=== PATIENT | female | born 1975 | race Caucasian/White ===

== ENCOUNTER 2017-12-28 03:35 | Observation (INO) | payer OTHER ==
[2017-12-28] MEDS ORDERED: Ondansetron 8 MG Tab.DIS PO ONE (03:45)
[2017-12-28] MEDS ORDERED: Pantoprazole 40 MG Vial IVPUSH ONE (03:57)
[2017-12-28] MEDS ORDERED: Sodium Chloride 0.9% 1,000 ML IV ONE (03:58)
[2017-12-28] MEDS ORDERED: HYDROmorphone 2 MG/ML SDV IVPUSH ONE ×2 (04:06→04:55)
[2017-12-28] MEDS ORDERED: Metoclopramide 10 MG/2 ML SDV IVPUSH ONE (04:55)
[2017-12-28] MEDS ORDERED: Sodium Chloride 0.9% 1,000 ML IV SCH (05:00)
[2017-12-28] MEDS ORDERED: Iopamidol 755 Mg/ML 100 ML Bottle IV ONE (06:04)
[2017-12-28] MEDS ORDERED: Diatrizoate Meglumine/Diatrizoate Sodium 37% 30 ML Bottle PO ONE (06:05)
--- NOTE | 2017-12-28 07:05 | EDM.PDOC ---
ED HPI GENERAL MEDICAL PROBLEM - General Chief Complaint: Abdominal Pain Stated Complaint: SIDE PAIN Time Seen by Provider: 12/28/17 03:35 Source of Information: Reports: Patient History Limitations: Reports: No Limitations - History of Present Illness INITIAL COMMENTS - FREE TEXT/NARRATIVE: 42 y.o.w.f came with her PC due to acute right upper and mid upper abd. pain and severe nausea, did not vomit. No diarrhea. No trauma, S/P Hysterectomy. No other acute medical issues. BP 123/80 Pulse 84 RR 18 Pulse ox 98% Temp 36.8 Onset Date: 12/28/17 Onset Time: 01:00 Duration: Hour(s):, Getting Worse Location: Reports: Abdomen Quality: Reports: Ache, Burning, Dull, Stabbing, Throbbing Severity: Moderate Improves with: Reports: None Worsens with: Reports: Movement Associated Symptoms: Reports: No Other Symptoms right upper abdomen Pain Score (Numeric/FACES): 2 - Related Data Allergies Allergy/AdvReac Type Severity Reaction Status Date / Time sulfamethoxazole Allergy Rash Verified 08/07/16 17:11 [From Bactrim] trimethoprim [From Bactrim] Allergy Rash Verified 08/07/16 17:11 Home Meds: Home Meds Amitriptyline [Elavil] 25 mg PO BEDTIME 08/07/16 [History] Estradiol 2 mg PO BEDTIME 08/07/16 [History] Naproxen Sodium [Aleve] 440 mg PO Q12H PRN 08/07/16 [History] Dicyclomine [Bentyl] 10 mg PO QIDACANDBED #40 cap 12/28/17 [Rx] PARoxetine [Paxil] 30 mg PO BEDTIME 12/28/17 [History] Past Medical History HEENT History: Reports: Impaired 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: Psychiatric History: Reports: Anxiety - Past Surgical History Female Surgical History: Reports: Section, Hysterectomy, Other (See Below) Social & Family History - Family History Family Medical History: Noncontributory - Tobacco Use Smoking Status *Q: Never Smoker Second Hand Smoke Exposure: No - Caffeine Use Caffeine Use: Reports: Soda - Recreational Drug Use Recreational Drug Use: No ED ROS GENERAL - Review of Systems Review Of Systems: See Below Constitutional: Reports: No Symptoms HEENT: Reports: No Symptoms Respiratory: Reports: No Symptoms Cardiovascular: Reports: No Symptoms Endocrine: Reports: No Symptoms GI/Abdominal: Reports: Abdominal Pain : Reports: No Symptoms Musculoskeletal: Reports: No Symptoms Skin: Reports: No Symptoms Neurological: Reports: No Symptoms Psychiatric: Reports: No Symptoms Hematologic/Lymphatic: Reports: No Symptoms Immunologic: Reports: No Symptoms ED EXAM, GI/ABD - Physical Exam Exam: See Below Exam Limited By: No Limitations General Appearance: Alert, WD/WN, Moderate Distress Eyes: Bilateral: Normal Appearance Ears: Normal External Exam, Normal Canal Nose: Normal Inspection, Normal Mucosa Throat/Mouth: Normal Inspection Head: Atraumatic, Normocephalic Neck: Normal Inspection, Supple, Non-Tender, Full Range of Motion Respiratory/Chest: No Respiratory Distress, Lungs Clear, Normal Breath Sounds Cardiovascular: Normal Peripheral Pulses, Regular Rate, Rhythm, No Edema, No Gallop GI/Abdominal Exam: Normal Bowel Sounds, Tender (RUQ and epigastric ) (Female) Exam: Deferred Rectal (Female) Exam: Deferred Back Exam: Normal Inspection, Full Range of Motion Extremities: Normal Inspection, Normal Range of Motion, Non-Tender, No Pedal Edema Neurological: Alert, Oriented, CN II-XII Intact, Normal Cognition, Normal Gait, Normal Reflexes, No Motor/Sensory Deficits Psychiatric: Normal Affect, Normal Mood Skin Exam: Warm, Dry, Intact, Normal Color Lymphatic: No Adenopathy Course - Vital Signs Text/Narrative:: 42 y.o.w.f came with her PC due to acute right upper and mid upper abd. pain and severe nausea, did not vomit. No diarrhea. No trauma, S/P Hysterectomy. No other acute medical issues. BP 123/80 Pulse 84 RR 18 Pulse ox 98% Temp 36.8 PE: WNWD W F with abd. pain Imaging: CT abd/pelvis: Pos Cholecystitis with GB wall thickening. US Abd. limited: Call bladder wall thickening with poss edema. Poss polyp on CBD Labs: CBC NL BMP and LFT nl Glc was 233, however Impression: Acute Abd. pain, Dehydration DDX cholecystitis. DDx Gastritis DDx Fatty liver Tx: Zofran, Dilaudid, NS, Protonix, Zosyn. Reexam: Improved 8.11 am Consultation: Dr. Moore: Will see the patient in the ED. Plan: Dr. Moore admitted the Pt to the [facility] Last Recorded V/S: Last Vital Signs Temp 36.8 C 12/28/17 16:00 Pulse 83 12/28/17 16:00 Resp 18 12/28/17 16:00 BP 123/79 12/28/17 16:00 Pulse Ox 96 12/28/17 16:00 - Orders/Labs/Meds Labs: Laboratory Tests 12/28/17 12/28/17 12/28/17 Range/Units 03:48 03:48 04:10 WBC (4.5-12.0) X10-3/uL RBC (3.23-5.20) x10(6)uL Hgb (11.5-15.5) g/dL Hct (30.0-51.3) % MCV (80-96) fL MCH (27.7-33.6) pg MCHC (32.2-35.4) g/dL RDW (11.5-15.5) % Plt Count (125-369) X10(3)uL MPV (7.4-10.4) fL Neut % (Auto) (46-82) % Lymph % (Auto) (13-37) % [place] % (Auto) (4-12) % Eos % (Auto) (1.0-5.0) % Baso % (Auto) (0-2) % Neut # (Auto) (1.6-8.3) # Lymph # (Auto) (0.6-5.0) # [place] # (Auto) (0.0-1.3) # Eos # (Auto) (0.0-0.8) # Baso # (Auto) (0.0-0.2) # Sodium (135-145) mmol/L Potassium (3.5-5.3) mmol/L Chloride (100-110) mmol/L Carbon Dioxide (21-32) mmol/L BUN (7-18) mg/dL Creatinine (0.55-1.02) mg/dL Est Cr Clr Drug Dosing mL/min Estimated GFR (MDRD) (>60) BUN/Creatinine Ratio (9-20) Glucose (80-116) mg/dL Calcium (8.6-10.2) mg/dL Total Bilirubin 0.1 (0.1-1.3) mg/dL Direct Bilirubin < 0.05 L (0.10-0.20) mg/dL AST 22 (5-25) IU/L ALT 39 H (12-36) U/L Alkaline Phosphatase 60 (56-112) IU/L Total Protein 6.7 (6.0-8.0) g/dL Albumin 3.2 L (3.5-5.2) g/dL Amylase 34 (25-115) U/L Urine Color Yellow (YELLOW) Urine Appearance Slightly cloudy (CLEAR) Urine pH 6.0 (5.0-6.5) Ur Specific [place] 1.030 H (1.010-1.025) Urine Protein Negative (NEGATIVE) mg/dL Urine Glucose (UA) Normal (NEGATIVE) mg/dL Urine Ketones Negative (NEGATIVE) mg/dL Urine Occult Blood Negative (NEGATIVE) Urine Nitrite Negative (NEGATIVE) Urine Bilirubin Negative (NEGATIVE) Urine Urobilinogen Normal (NEGATIVE) mg/dL Ur Leukocyte Esterase Negative (NEGATIVE) Urine RBC 0-5 (0) Urine WBC 0-5 (0) Ur Squamous Epith Cells Few H (NS,R,O) Urine Bacteria Few H (NS) Urine HCG, Qual Negative (NEGATIVE) 12/28/17 12/28/17 Range/Units 04:10 04:10 WBC 6.7 (4.5-12.0) X10-3/uL RBC 4.50 (3.23-5.20) x10(6)uL Hgb 13.4 (11.5-15.5) g/dL Hct 39.0 (30.0-51.3) % MCV 86.8 (80-96) fL MCH 29.8 (27.7-33.6) pg MCHC 34.4 (32.2-35.4) g/dL RDW 11.5 (11.5-15.5) % Plt Count 228 (125-369) X10(3)uL MPV 9.2 (7.4-10.4) fL Neut % (Auto) 60.9 (46-82) % Lymph % (Auto) 29.7 (13-37) % [place] % (Auto) 6.4 (4-12) % Eos % (Auto) 3 (1.0-5.0) % Baso % (Auto) 1 (0-2) % Neut # (Auto) 4.1 (1.6-8.3) # Lymph # (Auto) 2.0 (0.6-5.0) # [place] # (Auto) 0.4 (0.0-1.3) # Eos # (Auto) 0.2 (0.0-0.8) # Baso # (Auto) 0.0 (0.0-0.2) # Sodium 140 (135-145) mmol/L Potassium 4.9 (3.5-5.3) mmol/L Chloride 105 (100-110) mmol/L Carbon Dioxide 27 (21-32) mmol/L BUN 15 (7-18) mg/dL Creatinine 0.9 (0.55-1.02) mg/dL Est Cr Clr Drug Dosing 79.19 mL/min Estimated GFR (MDRD) > 60 (>60) BUN/Creatinine Ratio 16.7 (9-20) Glucose 123 H (80-116) mg/dL Calcium 10.1 (8.6-10.2) mg/dL Total Bilirubin (0.1-1.3) mg/dL Direct Bilirubin (0.10-0.20) mg/dL AST (5-25) IU/L ALT (12-36) U/L Alkaline Phosphatase (56-112) IU/L Total Protein (6.0-8.0) g/dL Albumin (3.5-5.2) g/dL Amylase (25-115) U/L Urine Color (YELLOW) Urine Appearance (CLEAR) Urine pH (5.0-6.5) Ur Specific [place] (1.010-1.025) Urine Protein (NEGATIVE) mg/dL Urine Glucose (UA) (NEGATIVE) mg/dL Urine Ketones (NEGATIVE) mg/dL Urine Occult Blood (NEGATIVE) Urine Nitrite (NEGATIVE) Urine Bilirubin (NEGATIVE) Urine Urobilinogen (NEGATIVE) mg/dL Ur Leukocyte Esterase (NEGATIVE) Urine RBC (0) Urine WBC (0) Ur Squamous Epith Cells (NS,R,O) Urine Bacteria (NS) Urine HCG, Qual (NEGATIVE) Meds: Medications Discontinued Medications Generic Name Dose Route Start Last Admin Trade Name Freq PRN Reason Stop Dose Admin Amitriptyline HCl 25 mg 12/28/17 21:00 Elavil PO BEDTIME KIRILL Diatrizoate Meglum/Diatrizoate Sod 30 ml 12/28/17 06:05 12/28/17 07:00 Gastrografin 37% PO 12/28/17 06:06 30 ml . DIRECTED ONE Administration Dicyclomine HCl 10 mg 12/28/17 09:02 12/28/17 13:25 Bentyl PO 10 mg QIDACANDBED PRN Administration Cramping Estradiol 2 mg 12/28/17 21:00 Estradiol PO BEDTIME KIRILL Hydromorphone HCl 0.5 mg 12/28/17 04:06 12/28/17 04:09 Dilaudid IVPUSH 12/28/17 04:07 0.5 mg ONETIME ONE Administration Hydromorphone HCl 1 mg 12/28/17 04:55 12/28/17 05:00 Dilaudid IVPUSH 12/28/17 04:56 1 mg ONETIME ONE Administration Sodium Chloride 1,000 mls @ 999 mls/hr 12/28/17 03:58 12/28/17 04:04 Normal Saline IV 12/28/17 04:58 999 mls/hr .BOLUS ONE Administration Piperacillin Sod/Tazobactam 50 mls @ 100 mls/hr 12/28/17 07:56 12/28/17 09:02 Sod 3.375 gm/ Sodium Chloride IV 12/28/17 08:25 Not Given ONETIME STA Lactated Ringer's 1,000 mls @ 125 mls/hr 12/28/17 09:00 12/28/17 13:12 Ringers, Lactated IV 125 mls/hr ASDIRECTED KIRILL Administration Sodium Chloride 1,000 mls @ 125 mls/hr 12/28/17 05:00 12/28/17 05:00 Normal Saline IV 125 mls/hr ASDIRECTED KIRILL Administration Iopamidol 100 ml 12/28/17 06:04 12/28/17 06:58 Isovue-370 (76%) IV 12/28/17 06:05 94 ml ONETIME ONE Administration Ketorolac Tromethamine 30 mg 12/28/17 08:59 12/28/17 10:19 Toradol IVPUSH 30 mg Q6H PRN Administration Pain (moderate 4-6) Metoclopramide HCl 10 mg 12/28/17 04:55 12/28/17 05:00 Reglan IVPUSH 12/28/17 04:56 10 mg ONETIME ONE Administration Non-Formulary Medication 20 mg 12/28/17 09:15 12/28/17 14:58 Paroxetine Hcl [Paroxetine Hcl] PO Not Given DAILY KIRILL Ondansetron HCl 8 mg 12/28/17 03:45 12/28/17 03:48 Zofran Odt PO 12/28/17 03:46 8 mg ONETIME ONE Administration Ondansetron HCl 8 mg 12/28/17 08:59 12/28/17 09:18 Zofran IV 8 mg Q4H PRN Administration Nausea/Vomiting Pantoprazole Sodium 40 mg 12/28/17 03:57 12/28/17 04:04 Protonix Iv IVPUSH 12/28/17 03:58 40 mg ONETIME ONE Administration Paroxetine HCl 30 mg 12/28/17 21:00 Paxil PO BEDTIME KIRILL Departure - Departure Time of Disposition: 11:00 Disposition: Refer to Observation Condition: Fair Clinical Impression: Gastroenteritis - Discharge Information
[2017-12-28] MEDS ORDERED: Piperacillin/Tazobactam 3.375 GM in Sodium Chloride 0.9% 50 ML IV STA (07:56)
[2017-12-28] MEDS ORDERED: Ondansetron 4 MG/2 ML SDV IV PRN (08:59)
[2017-12-28] MEDS ORDERED: Ketorolac 30 MG/ML SDV IVPUSH PRN (08:59)
[2017-12-28] MEDS ORDERED: Lactated Ringers 1,000 ML IV SCH (09:00)
[2017-12-28] MEDS ORDERED: Dicyclomine 10 MG Cap PO PRN (09:02)
[2017-12-28] MEDS ORDERED: PAROXETINE HCL 20 MG PO SCH (09:15)
--- NOTE | 2017-12-28 09:33 | US ---
INDICATION: Right upper quadrant abdominal pain. Positive Cid sign. RIGHT UPPER QUADRANT/GALLBLADDER ULTRASOUND: Multiple ultrasonic images were obtained 12/28/2017 and compared with 02/02/2016. The gallbladder remains within normal limits in size. However, it has an abnormal appearance with thickened wall and pericholecystic fluid. There appears to be a calcific rimmed impacted density in the neck of the gallbladder , compatible with a gallstone. This appearance was not present on the previous study of 2015, which showed no thickening of the wall and no impacted echogenic focus at the neck of the gallbladder, or pericholecystic fluid at that time. The area is generally tender. However, the patient has been given pain medications. Cid sign is felt to be inconsistent, therefore. The liver is heterogeneous and echogenic, compatible with diffuse fatty infiltration with a few areas of fatty sparing noted. The common bile duct was slightly prominent in size, at 5.2 mm compared with 3.9 mm on the previous examination. This may be within normal limits, however. The right kidney was unremarkable. No other organomegaly or mass lesions were identified. No other areas of free fluid collection were seen. The aorta and IVC were not evaluated. The pancreas was partly visualized, appearing normal where seen. The tail was not ideally seen. IMPRESSION: Findings are compatible with cholelithiasis and acute cholecystitis. Report was called to Dr. Moore at 0900 hours, 12/28/2017. Incidental note is made of a mass posterior to the cecum, which measures approximately 38 to 40 mm and was present on a previous CT study of 2015, and is essentially unchanged from that previous examination. It may represent an endometrioma. It did not appear to be present on pre-hysterectomy CT of 2011. However,current CT appearance is stable compared with the previous CT scan of 02/05/2016. [facility]
--- NOTE | 2017-12-28 09:51 | PCM.HP ---
H&P History of Present Illness - General Date of Service: 12/28/17 Source of Information: Patient - History of Present Illness Initial Comments - Free Text/Narative: 42 yo wf who presented to the ED today with a complaint of abd pain and diarrhea. The pain was diffuse in nature, now located on the right side. Her issue started several days ago with diarrhea. she has been having frequent loose stools and yesterday pain along with nausea and vomiting started. The pain is crampy in nature. No real aggravating factors are noted. She also had some nausea as well. Has noted some chills over the past few weeks. No fever. Lab work was essentially normal nely with her CBC an LFT's. CT scan demonstrates what appears to be acute cholecystitis. US demonstrated thickening of the gallbladder wall with a small stone in the neck of the gallbladder. She has a hx of IBS. Denies any hx of fatty food intolerance, jaundice or acholic stools. right upper abdomen Pain Score (Numeric/FACES): 2 - Related Data Allergies/Adverse Reactions: Allergies Allergy/AdvReac Type Severity Reaction Status Date / Time sulfamethoxazole Allergy Rash Verified 08/07/16 17:11 [From Bactrim] trimethoprim [From Bactrim] Allergy Rash Verified 08/07/16 17:11 Home Medications: Home Meds Amitriptyline [Elavil] 25 mg PO BEDTIME 08/07/16 [History] Estradiol [Estradiol] 2 mg PO BEDTIME 08/07/16 [History] Naproxen Sodium [Aleve] 440 mg PO Q12H PRN 08/07/16 [History] PARoxetine [Paxil] 30 mg PO BEDTIME 12/28/17 [History] Past Medical History HEENT History: Reports: Impaired Vision Gastrointestinal History: Reports: Irritable Bowel Syndrome 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: Endometriosis, Psychiatric History: Reports: Anxiety - Past Surgical History Female Surgical History: Reports: Section, Hysterectomy, Other (See Below) Social & Family History - Family History Family Medical History: Noncontributory - Tobacco Use Smoking Status *Q: Never Smoker Second Hand Smoke Exposure: No - Caffeine Use Caffeine Use: Reports: Soda - Recreational Drug Use Recreational Drug Use: No H&P Review of Systems - Review of Systems: Review Of Systems: See Below General: Denies: Fever, Weight Loss HEENT: Reports: No Symptoms Pulmonary: Reports: No Symptoms Cardiovascular: Reports: No Symptoms Gastrointestinal: Reports: Abdominal Pain, Diarrhea, Nausea Genitourinary: Reports: No Symptoms Musculoskeletal: Reports: No Symptoms Skin: Reports: No Symptoms Neurological: Reports: No Symptoms Exam - Exam Exam: See Below - Vital Signs Vital Signs: Last Vital Signs Temp 36.7 C 12/28/17 09:15 Pulse 84 12/28/17 06:30 Resp 18 12/28/17 09:15 BP 125/80 12/28/17 09:15 Pulse Ox 100 12/28/17 09:15 Weight: 90.718 kg - Exam General: Alert, Oriented, Cooperative. No: Mild Distress HEENT: PERRLA, Conjunctiva Clear, EOMI, Mucosa Moist & [place], Posterior Pharynx Clear, Pupils Equal, Pupils Reactive, TMs Clear Lungs: Clear to Auscultation, Normal Respiratory Effort Cardiovascular: Regular Rate, Regular Rhythm GI/Abdominal Exam: Soft, Non-Tender, Abnormal Bowel Sounds (hyperactive ) Rectal (Female) Exam: Deferred Back Exam: Normal Inspection - Patient Data Result Diagrams: 12/28/17 04:10 12/28/17 04:10 *Q Meaningful Use (ADM) - VTE *Q VTE Criteria *Q: - Stroke *Q Stroke Criteria *Q: - AMI *Q AMI Criteria *Q: - Problem List (1) AGE (acute gastroenteritis) SNOMED Code(s): 94242693 ICD Code: K52.9 - NONINFECTIVE GASTROENTERITIS AND COLITIS, UNSPECIFIED Status: Acute Current Visit: Yes (2) Gallstone SNOMED Code(s): 488637269 ICD Code: K80.20 - CALCULUS OF GALLBLADDER W/O CHOLECYSTITIS W/O OBSTRUCTION Status: Acute Current Visit: Yes Qualifiers: Cholecystitis presence: without cholecystitis Biliary obstruction: without biliary obstruction Qualified Code(s): K80.20 - Calculus of gallbladder without cholecystitis without obstruction Problem List Initiated/Reviewed/Updated: Yes Orders Last 24hrs: Active Orders 24 hr Category Date Time Status Sodium Chloride 0.9% [Normal Saline] 1,000 ml Med 12/28/17 05:00 Active IV ASDIRECTED Medication Orders Dicyclomine HCl (Bentyl) 10 mg PO QIDACANDBED PRN PRN Reason: Cramping Lactated Ringer's (Ringers, Lactated) 1,000 mls @ 125 mls/hr IV ASDIRECTED KIRILL Sodium Chloride (Normal Saline) 1,000 mls @ 125 mls/hr IV ASDIRECTED KIRILL Last Admin: 12/28/17 05:00 Dose: 125 mls/hr Ketorolac Tromethamine (Toradol) 30 mg IVPUSH Q6H PRN PRN Reason: Pain (moderate 4-6) Non-Formulary Medication (Amitriptyline [Elavil]) 25 mg PO BEDTIME KIRILL Non-Formulary Medication (Estradiol [Estradiol]) 2 mg PO DAILY KIRILL Non-Formulary Medication (Paroxetine Hcl [Paroxetine Hcl]) 20 mg PO DAILY KIRILL Ondansetron HCl (Zofran) 8 mg IV Q4H PRN PRN Reason: Nausea/Vomiting Last Admin: 12/28/17 09:18 Dose: 8 mg Assessment/Plan Comment:: while her imaging studies suggest cholecystitis, clinically she does not appear to have this at this time Rather AGE appears to be favored diagnosis. I am going to admit the pt for iv fluids and repeat lab.
[2017-12-28 17:31] VITALS: BP 123/79
--- NOTE | 2017-12-28 18:21 | PCM.SN ---
- Free Text/Narrative Note: abd pain is better with the bentyl. she has tolerated a regular diet. CBC has stayed in the normal range. abd bowel sounds are better. no rebound or guarding. would like to go home will discharge.
[2017-12-28] MEDS ORDERED: Estradiol 1 MG Tab PO SCH (21:00)
[2017-12-28] MEDS ORDERED: Amitriptyline 25 MG Tab PO SCH (21:00)
== END 2017-12-28 19:10 | disposition home or self-care (01) ==
LOC: FB.ED 03:35 → FB.MS 09:03
PROVIDERS: ADMIT Surgery; ATTEND Surgery
DX: K52.9 Noninfective gastroenteritis and colitis, unspecified (principal); K80.20 Calculus of gallbladder without cholecystitis without obstruction; F41.9 Anxiety disorder, unspecified; Z88.2 Allergy status to sulfonamides; Z88.1 Allergy status to other antibiotic agents
CPT/HCPCS: 36415; 74177; 76705; 80048; 80076; 81001; 81025; 82150; 85025; A9270; C9113; J1170; J1885; J2405; J2765; J7040; J7120; Q9967

== ENCOUNTER 2017-12-30 07:25 | Day surgery (SDC) | payer OTHER ==
[2017-12-30] MEDS ORDERED: Lactated Ringers 1,000 ML IV SCH ×2 (08:00→10:30)
[2017-12-30] MEDS ORDERED: Ondansetron 4 MG/2 ML SDV IVPUSH ONE (09:00)
[2017-12-30] MEDS ORDERED: Dexamethasone 4 MG/ML 5 ML MDV IVPUSH ONE (09:00)
[2017-12-30] MEDS ORDERED: Midazolam 1 MG/ML 2 ML SDV IV ONE (09:00)
[2017-12-30] MEDS ORDERED: Ketorolac 30 MG/ML SDV IVPUSH ONE (09:00)
[2017-12-30] MEDS ORDERED: Neostigmine Methylsulfate 1 MG/ML 5 ML Syringe IV ONE (09:00)
[2017-12-30] MEDS ORDERED: HYDROmorphone 2 MG/ML SDV IV ONE (09:00)
[2017-12-30] MEDS ORDERED: Propofol 200 MG/20 ML SDV IV ONE (09:00)
[2017-12-30] MEDS ORDERED: fentaNYL 100 MCG/2 ML SDV IV ONE (09:00)
[2017-12-30] MEDS ORDERED: Rocuronium 100 MG/10 ML MDV IV ONE (09:00)
[2017-12-30] MEDS ORDERED: Lactated Ringers 1,000 ML IV ONE (09:00)
--- NOTE | 2017-12-30 09:05 | PCM.HPR ---
H & P Addendum review - H & P Addendum Review Date of Original H & P: 12/29/17 Date Reviewed: 12/30/17 Time Reviewed: 08:50 Patient was Examined: No Changes
--- NOTE | 2017-12-30 10:03 | PCM.OPNOTE ---
- General Post-Op/Procedure Note Date of Surgery/Procedure: 12/30/17 Operative Procedure(s): Lap [facility] Findings: Acute Cholecystitis/Cholelitiasis Pre Op Diagnosis: [place] Post-Op Diagnosis: Same Anesthesia Technique: General ET Tube Primary Surgeon: Jun Arenas Pathology: Gallbladder EBL in mLs: 10 Condition: Good
[2017-12-30] MEDS ORDERED: Promethazine 25 MG/ML SDV IM PRN (10:20)
[2017-12-30] MEDS ORDERED: fentaNYL 100 MCG/2 ML SDV IVPUSH PRN (10:20)
[2017-12-30] MEDS ORDERED: Naloxone 0.4 MG/ML SDV IVPUSH PRN (10:20)
[2017-12-30] MEDS ORDERED: Acetaminophen/HYDROcodone 325-5 MG Tab PO PRN (10:35)
[2017-12-30] MEDS ORDERED: hydrOXYzine HCl 50 MG/ML SDV IM ONE (10:38)
[2017-12-30] MEDS ORDERED: hydrOXYzine HCl 50 MG/ML SDV ONE (10:39)
[2017-12-30] MEDS ORDERED: Acetaminophen/HYDROcodone 325-5 MG Tab PO ONE (13:18)
--- NOTE | 2017-12-30 14:45 | OR ---
DATE OF OPERATION: 12/30/2017 SURGEON: Jun Arenas MD PREOPERATIVE DIAGNOSES: Acute cholecystitis and cholelithiasis. POSTOPERATIVE DIAGNOSES: Acute cholecystitis and cholelithiasis. PROCEDURE: Laparoscopic cholecystectomy. RPG PROGRAMMER: None. ANESTHESIA: General. PROCEDURE: The patient was brought to the operating room, where general endotracheal anesthesia was administered. The abdomen was prepped with ChloraPrep and draped sterilely. An infraumbilical incision was made and extended into the peritoneal cavity without difficulty. The Fer cannulator was introduced and a pneumoperitoneum obtained. The remaining three 5-mm ports were placed in the usual positions. General exploration revealed the surface of the liver, stomach, omentum, bowel, and peritoneal surfaces to be normal. There were some omental adhesions to the lower midline that were not interfering with visualization. The gallbladder was edematous consistent with acute cholecystitis. The gallbladder was grasped and retracted cephalad. The cystic artery and cystic duct were clearly dissected free. Minimal oozing occurred during the dissection. The cystic artery was doubly clipped proximally and once distally and then transected. The anatomy of the cystic duct was reconfirmed and could be seen entering the gallbladder and extending towards the common bile duct. This was doubly clipped proximally and once distally and then transected. The gallbladder was then removed from the bed of the liver without difficulty. No bile leakage occurred. The gallbladder was brought out through the umbilical incision. The right upper quadrant was irrigated and inspected, return was clear, and hemostasis was assured. Ports were removed under direct vision and remained hemostatic. The umbilical fascia was closed with [id number] #0 Vicryl. The skin was closed with #4-0 Vicryl subcuticular sutures. Benzoin and Steri-Strips were placed and Band-Aids applied. The patient tolerated the procedure well. Estimated blood loss is 10 mL. Patient returned to postanesthesia in stable condition. /[id number] [place]
[2017-12-30 15:17] VITALS: BP 137/81
== END 2017-12-30 14:35 | disposition home or self-care (01) ==
LOC: FB.SDS 07:25 → FB.MS 07:26 → FB.SDS 14:35
PROVIDERS: ATTEND Surgery
DX: K80.10 Calculus of gallbladder with chronic cholecystitis without obstruction (principal); Z90.89 Acquired absence of other organs; Z90.722 Acquired absence of ovaries, bilateral; Z90.710 Acquired absence of both cervix and uterus; Z98.890 Other specified postprocedural states; Z88.2 Allergy status to sulfonamides
CPT/HCPCS: 88304; A9270-GY; J1100; J1170; J1885; J2250; J2405; J2704; J3010; J3410; J7120

== ENCOUNTER 2021-06-15 20:40 | Emergency (ER) | payer OTHER ==
[2021-06-15 21:11] VITALS: BP 152/84; PULSE 67
[2021-06-15] MEDS ORDERED: Ondansetron 4 MG/2 ML SDV IVPUSH ONE (21:54)
[2021-06-15] MEDS ORDERED: Sodium Chloride 0.9% 10 ML Syringe FLUSH PRN (21:54)
[2021-06-15] MEDS ORDERED: Ketorolac 30 MG/ML SDV IVPUSH STA (21:55)
[2021-06-15] MEDS ORDERED: Morphine 2 MG/ML SYRINGE IVPUSH STA (21:55)
[2021-06-15] MEDS ORDERED: Sodium Chloride 0.9% 1,000 ML IV SCH (22:00)
[2021-06-15] MEDS ORDERED: Iopamidol 755 Mg/ML 100 ML Bottle IV ONE (22:13)
--- NOTE | 2021-06-15 22:16 | EDM.PDOC ---
ED HPI GENERAL MEDICAL PROBLEM - General Chief Complaint: Abdominal Pain Stated Complaint: STOMACH PAIN RIGHT SIDE Time Seen by Provider: 06/15/21 21:05 Source of Information: Reports: Patient History Limitations: Reports: No Limitations - History of Present Illness INITIAL COMMENTS - FREE TEXT/NARRATIVE: Patient presented to the ED because of alternating diarrhea, constipation and sharp, stabbing pain over the RUQ and RLQ. She rate the pain 8/10 with associated nausea but no vomiting. There is no fever, chills or urinary symptoms. Right Abdomen Pain Score (Numeric/FACES): 6 - Related Data Allergies Allergy/AdvReac Type Severity Reaction Status Date / Time sulfamethoxazole Allergy Rash Verified 08/07/16 17:11 [From Bactrim] trimethoprim [From Bactrim] Allergy Rash Verified 08/07/16 17:11 Home Meds: Home Meds Propranolol HCl [Propranolol HCl ER] 120 mg PO DAILY 06/15/21 [History] Past Medical History HEENT History: Reports: Impaired Vision Gastrointestinal History: Reports: Cholelithiasis, Irritable Bowel Syndrome Genitourinary History: Reports: None GAME WARDEN History: Reports: Other GAME WARDEN History: Psychiatric History: Reports: Anxiety Endocrine/Metabolic History: Reports: Obesity/BMI 30+ Hematologic History: Reports: Blood Transfusion(s) Dermatologic History: Reports: Eczema Other Dermatologic History: eczema to back of neck. - Infectious Disease History Infectious Disease History: Reports: Chicken Pox - Past Surgical History Head Surgeries/Procedures: Reports: None HEENT Surgical History: Reports: Oral Surgery, Tonsillectomy GI Surgical History: Reports: Colonoscopy, EGD Female Surgical History: Reports: Section, Hysterectomy, Other (See Below) Other Female Surgeries/Procedures: CS x 3 Social & Family History - Family History Family Medical History: No Pertinent Family History - Tobacco Use Tobacco Use Status *Q: Never Tobacco User - Caffeine Use Caffeine Use: Reports: None - Recreational Drug Use Recreational Drug Use: No ED ROS GENERAL - Review of Systems Review Of Systems: See Below Constitutional: Reports: No Symptoms HEENT: Reports: No Symptoms Respiratory: Reports: No Symptoms Cardiovascular: Reports: No Symptoms Endocrine: Reports: No Symptoms GI/Abdominal: Reports: Abdominal Pain, Constipation, Diarrhea, Nausea : Reports: No Symptoms Musculoskeletal: Reports: No Symptoms Skin: Reports: No Symptoms Neurological: Reports: No Symptoms ED EXAM, GI/ABD - Physical Exam Exam: See Below Exam Limited By: No Limitations General Appearance: Alert, No Apparent Distress Ears: Normal External Exam, Normal Canal, Hearing Grossly Normal Nose: Normal Inspection, Normal Mucosa, No Blood Throat/Mouth: Normal Inspection, Normal Lips, Normal Teeth, Normal Gums, Normal Oropharynx, Normal Voice Head: Atraumatic, Normocephalic Neck: Normal Inspection, Supple, Non-Tender, Full Range of Motion Respiratory/Chest: No Respiratory Distress, Lungs Clear, Normal Breath Sounds, No Accessory Muscle Use, Chest Non-Tender Cardiovascular: Normal Peripheral Pulses, Regular Rate, Rhythm, No Edema, No Gallop, No JVD, No Murmur GI/Abdominal Exam: Soft, Non-Tender, Abnormal Bowel Sounds, Other (tenderness over the RUQ,RLQ and LLQ) Back Exam: Normal Inspection, Full Range of Motion Neurological: Alert, Oriented, CN II-XII Intact Course - Vital Signs Text/Narrative:: Lab/CT result was reviewed and discussed with patient NS 1 L bolus Zofran 4 mg IV x1 Toradol 30 mg IV x1 Morphine 2 mg IV x1 Last Recorded V/S: Last Vital Signs Temp 37.3 C 06/15/21 21:00 Pulse 67 06/15/21 21:00 Resp 18 06/15/21 21:00 BP 152/84 H 06/15/21 21:00 Pulse Ox 98 06/15/21 21:00 - Orders/Labs/Meds Orders: Active Orders 24 hr Category Date Time Status Abdomen Pelvis w Cont [CT] Stat Exams 06/15/21 21:56 Taken Sodium Chloride 0.9% [Normal Saline] 1,000 ml Med 06/15/21 22:00 Active IV ASDIRECTED Sodium Chloride 0.9% [Saline Flush] Med 06/15/21 21:54 Active 10 ml FLUSH ASDIRECTED PRN Saline Lock Insert [OM.PC] Routine Oth 06/15/21 21:54 Ordered Medication Orders Sodium Chloride (Normal Saline) 1,000 mls @ 999 mls/hr IV ASDIRECTED KIRILL Last Admin: 06/15/21 22:30 Dose: 999 mls/hr Documented by: BREA Sodium Chloride (Sodium Chloride 0.9% 10 Ml Syringe) 10 ml FLUSH ASDIRECTED PRN PRN Reason: Keep Vein Open Labs: Laboratory Tests 06/15/21 06/15/21 06/15/21 Range/Units 21:54 22:00 22:00 WBC 8.2 (3.0-10.3) x10-3/uL RBC 4.74 (3.60-5.20) x10(6)uL Hgb 14.0 (11.4-15.5) g/dL Hct 42.4 (34.2-48.2) % MCV 89.5 (76.7-100.5) fL MCH 29.6 (23.9-33.9) pg MCHC 33.1 (31.9-34.8) g/dL RDW 12.4 (12.3-16.5) % Plt Count 270 (151-488) x10(3)uL MPV 8.6 (7.1-12.4) fL Neut % (Auto) 61.8 (30.8-76.2) % Lymph % (Auto) 29.5 (18.4-52.1) % [place] % (Auto) 6.2 (4.4-15.7) % Eos % (Auto) 1.8 (0.6-8.1) % Baso % (Auto) 0.7 (0.2-1.5) % Neut # (Auto) 5.1 (1.5-6.3) x10-3/uL Lymph # (Auto) 2.4 (1.0-4.4) x10-3/uL [place] # (Auto) 0.5 (0.3-1.0) x10-3/uL Eos # (Auto) 0.1 (0.0-0.8) x10-3/uL Baso # (Auto) 0.1 (0.0-0.1) x10-3/uL Sodium 143 (135-145) mmol/L Potassium 5.0 (3.5-5.3) mmol/L Chloride 107 (100-110) mmol/L Carbon Dioxide 26 (21-32) mmol/L BUN 16 (7-18) mg/dL Creatinine 0.9 (0.55-1.02) mg/dL Est Cr Clr Drug Dosing TNP Estimated GFR (MDRD) > 60 (>60) BUN/Creatinine Ratio 17.8 (9-20) Glucose 102 (80-116) mg/dL Calcium 9.2 (8.6-10.2) mg/dL Total Bilirubin 0.4 (0.1-1.3) mg/dL AST 15 D (5-25) IU/L ALT 32 D (12-36) U/L Alkaline Phosphatase 67 (56-112) IU/L Total Protein 7.2 (6.0-8.0) g/dL Albumin 3.5 (3.5-5.2) g/dL Globulin 3.7 g/dL Albumin/Globulin Ratio 1.0 Amylase 39 (25-115) U/L Lipase (73-393) U/L Urine Color Yellow (YELLOW) Urine Appearance Clear (CLEAR) Urine pH 6.0 (5.0-6.5) Ur Specific [place] 1.020 (1.010-1.025) Urine Protein Negative (NEGATIVE) mg/dL Urine Glucose (UA) Normal (NORMAL) mg/dL Urine Ketones Negative (NEGATIVE) mg/dL Urine Occult Blood Negative (NEGATIVE) Urine Nitrite Negative (NEGATIVE) Urine Bilirubin Negative (NEGATIVE) Urine Urobilinogen Normal (NEGATIVE) mg/dL Ur Leukocyte Esterase Negative (NEGATIVE) Urine RBC 0-5 (0-5) Urine WBC 0-5 (0-5) Ur Squamous Epith Cells Occasional (NS,R,O) Urine Bacteria Few H (NS) 06/15/21 Range/Units 22:00 WBC (3.0-10.3) x10-3/uL RBC (3.60-5.20) x10(6)uL Hgb (11.4-15.5) g/dL Hct (34.2-48.2) % MCV (76.7-100.5) fL MCH (23.9-33.9) pg MCHC (31.9-34.8) g/dL RDW (12.3-16.5) % Plt Count (151-488) x10(3)uL MPV (7.1-12.4) fL Neut % (Auto) (30.8-76.2) % Lymph % (Auto) (18.4-52.1) % [place] % (Auto) (4.4-15.7) % Eos % (Auto) (0.6-8.1) % Baso % (Auto) (0.2-1.5) % Neut # (Auto) (1.5-6.3) x10-3/uL Lymph # (Auto) (1.0-4.4) x10-3/uL [place] # (Auto) (0.3-1.0) x10-3/uL Eos # (Auto) (0.0-0.8) x10-3/uL Baso # (Auto) (0.0-0.1) x10-3/uL Sodium (135-145) mmol/L Potassium (3.5-5.3) mmol/L Chloride (100-110) mmol/L Carbon Dioxide (21-32) mmol/L BUN (7-18) mg/dL Creatinine (0.55-1.02) mg/dL Est Cr Clr Drug Dosing Estimated GFR (MDRD) (>60) BUN/Creatinine Ratio (9-20) Glucose (80-116) mg/dL Calcium (8.6-10.2) mg/dL Total Bilirubin (0.1-1.3) mg/dL AST (5-25) IU/L ALT (12-36) U/L Alkaline Phosphatase (56-112) IU/L Total Protein (6.0-8.0) g/dL Albumin (3.5-5.2) g/dL Globulin g/dL Albumin/Globulin Ratio Amylase (25-115) U/L Lipase 131 (73-393) U/L Urine Color (YELLOW) Urine Appearance (CLEAR) Urine pH (5.0-6.5) Ur Specific [place] (1.010-1.025) Urine Protein (NEGATIVE) mg/dL Urine Glucose (UA) (NORMAL) mg/dL Urine Ketones (NEGATIVE) mg/dL Urine Occult Blood (NEGATIVE) Urine Nitrite (NEGATIVE) Urine Bilirubin (NEGATIVE) Urine Urobilinogen (NEGATIVE) mg/dL Ur Leukocyte Esterase (NEGATIVE) Urine RBC (0-5) Urine WBC (0-5) Ur Squamous Epith Cells (NS,R,O) Urine Bacteria (NS) Meds: Medications Generic Name Dose Route Start Last Admin Trade Name Freq PRN Reason Stop Dose Admin Sodium Chloride 1,000 mls @ 999 mls/hr 06/15/21 22:00 06/15/21 22:30 Normal Saline IV 999 mls/hr ASDIRECTED KIRILL Administration Sodium Chloride 10 ml 06/15/21 21:54 Sodium Chloride 0.9% 10 Ml Syringe FLUSH ASDIRECTED PRN Keep Vein Open Discontinued Medications Generic Name Dose Route Start Last Admin Trade Name Kerri PRN Reason Stop Dose Admin Iopamidol 100 ml 06/15/21 22:13 06/15/21 22:22 Iopamidol 755 Mg/Ml 100 Ml Bottle IV 06/15/21 22:14 100 ml . DIRECTED ONE Administration Ketorolac Tromethamine 30 mg 06/15/21 21:55 06/15/21 22:16 Ketorolac 30 Mg/Ml Sdv IVPUSH 06/15/21 21:56 30 mg NOW STA Administration Morphine Sulfate 2 mg 06/15/21 21:55 06/15/21 22:18 Morphine 2 Mg/Ml Syringe IVPUSH 06/15/21 21:56 2 mg NOW STA Administration Ondansetron HCl 4 mg 06/15/21 21:54 06/15/21 22:15 Ondansetron 4 Mg/2 Ml Sdv IVPUSH 06/15/21 21:55 4 mg ONETIME ONE Administration Departure - Departure Time of Disposition: 22:30 Disposition: Home, Self-Care 01 Condition: Good Clinical Impression: Gastroenteritis, Pelvic mass, Nephrolithiasis - Discharge Information Instructions: Viral Gastroenteritis, Adult, [id number] Referrals: PCP,None [Primary Care Provider] - Forms: ED Department Discharge Additional Instructions: Please read discharge instructions on pelvic mass, nephrolithiasis and viral gastroenteritis Frequent hand washing Drink at least 2 liters of water daily Imodium 2 tablets every 6 hours as needed for diarrhea(over the counter) [place] 5/325, 1-2 tablets every 4-6 hours as needed for pain Flomax 1 tablet daily for 10 days Follow up with your doctor so you can have MRI of the abd/pevis Sepsis Event Note (ED) - Evaluation Sepsis Screening Result: No Definite Risk - Focused Exam Vital Signs: Vital Signs Temp Pulse Resp BP Pulse Ox 06/15/21 21:00 37.3 C 67 18 152/84 H 98 - My Orders Last 24 Hours: My Active Orders 06/15/21 21:54 Sodium Chloride 0.9% [Saline Flush] 10 ml FLUSH ASDIRECTED PRN Saline Lock Insert [OM.PC] Routine 06/15/21 21:56 Abdomen Pelvis w Cont [CT] Stat 06/15/21 22:00 Sodium Chloride 0.9% [Normal Saline] 1,000 ml IV ASDIRECTED - Assessment/Plan Last 24 Hours: My Active Orders 06/15/21 21:54 Sodium Chloride 0.9% [Saline Flush] 10 ml FLUSH ASDIRECTED PRN Saline Lock Insert [OM.PC] Routine 06/15/21 21:56 Abdomen Pelvis w Cont [CT] Stat 06/15/21 22:00 Sodium Chloride 0.9% [Normal Saline] 1,000 ml IV ASDIRECTED
== END 2021-06-15 23:34 | disposition home or self-care (01) ==
LOC: FB.ED 20:40
DX: K52.9 Noninfective gastroenteritis and colitis, unspecified (principal); R19.00 Intra-abdominal and pelvic swelling, mass and lump, unspecified site; N20.0 Calculus of kidney; E66.9 Obesity, unspecified; Z88.2 Allergy status to sulfonamides; Z88.1 Allergy status to other antibiotic agents
CPT/HCPCS: 36415; 74177; 80053; 81001; 82150; 83690; 85025; 96374; 96375; 99284; J1885; J2270; J2405; J7030; Q9967